=== PATIENT | female | born 1995 | race African-American/Black ===

== ENCOUNTER 2017-08-25 15:39 | Inpatient (IN) ==
[2017-08-25] MEDS ORDERED: ONDANSETRON 4 MG/2 ML VIAL IV PRN (15:59)
[2017-08-25] MEDS ORDERED: LACTATED RINGERS 1,000 ML IV ONE (15:59)
[2017-08-25] MEDS ORDERED: BUTORPHANOL 2 MG/ML VIAL IV PRN (15:59)
[2017-08-25] MEDS ORDERED: LACTATED RINGERS 1,000 ML IV SCH (16:00)
[2017-08-25] MEDS ORDERED: FAMOTIDINE 20 MG/2 ML VIAL IV ONE (16:23)
[2017-08-25] MEDS ORDERED: CITRIC ACID/SODIUM CITRATE 30 ML UDCUP PO ONE (16:23)
[2017-08-25] MEDS ORDERED: ePHEDrine 50 MG/ML AMP IV PRN (16:23)
[2017-08-25 16:27] LABS: Basophils # 0.1 10*3/uL (0.0-0.2); Basophils % 0.3 % (0.0-0.8); Eosinophils # 0.1 10*3/uL (0.0-0.87); Eosinophils % 0.3 % (0.00-10.9); Hematocrit 30.8 VOL% (35.7-47.0); Hemoglobin 9.4 GM/DL (12.0-16.0); Immature Granulocytes % 0.9 %; Immature Granulocytes Absolute 0.13 #; Lymphocytes # 1.8 10*3/uL (1.4-4.0); Lymphocytes % 11.8 % (21.3-54.2); Mean Corpuscular HGB Conc 30.5 GM/DL (32-36); Mean Corpuscular Hemoglobin 21 PG (27-34); Mean Corpuscular Volume 69.1 FL (87-102); Monocytes # 1.2 10*3/uL (0.11-0.8); Monocytes % 8.1 % (1.7-12.7); Neutrophils # 11.9 10*3/uL (1.4-7.4); Neutrophils % 78.6 % (38.7-73.9); Platelet Count 164 T/CUMM (130-400); Red Blood Count 4.46 MC/CUMM (3.8-5.5); Red Cell Distribution Width 25.1 % (9.3-17.3); White Blood Count 15.2 T/CUMM (4-12)
[2017-08-25] MEDS ORDERED: fentaNYL 2 MCG/ROPIV 0.2% EPID 150 ML EPIDURAL SCH (16:30)
[2017-08-25 17:02] LABS: Albumin 2.8 G/DL (3.4-5.0); Bilirubin,Total 0.8 MG/DL (0.2-1.0); Calcium 8.8 MG/DL (8.5-10.1); Potassium 3.6 MMOL/L (3.5-5.1); Total Protein 6.9 G/DL (6.4-8.3); Uric Acid 2.7 MG/DL (2.6-6.0)
[2017-08-25 17:04] LABS: INR 0.9; PT Patient Result 9.9 SECS; Partial Thromboplastin Time 26.4 SECS (0-40)
[2017-08-25 18:11] LABS: Barbiturates Screen,Urine Negative (Negative); Benzodiazepines Screen,Urine Negative (Negative); Cannabinoid Screen,Urine Positive (Negative); Opiate Screen,Urine Negative (Negative); Phencyclidine Screen,Urine Negative (Negative)
[2017-08-25] MEDS ORDERED: OXYTOCIN/LR 20 UNIT/1,000 ML BAG IV ONE (18:18)
[2017-08-25] MEDS ORDERED: ACETAMINOPHEN/CODEINE 300-30 MG TABLET PO PRN (19:17)
[2017-08-25] MEDS ORDERED: OXYTOCIN/LR 30 UNIT/1,000 ML BAG IV ONE (20:30)
[2017-08-25 21:27] LABS: Hypochromasia 1+; Microcytosis 2+; Ovalocytes Few; Platelet Estimate Normal; Poikilocytosis 1+; Tear Drop Cells Few
[2017-08-25] MEDS ORDERED: WITCH HAZEL PADS 100/JAR TOP PRN (22:59)
[2017-08-25] MEDS ORDERED: BENZOCAINE 20%/MENTHOL 0.5% SPRAY 56 GM CAN TOP PRN (22:59)
[2017-08-25] MEDS ORDERED: MEASLES/MUMPS/RUBELLA VACCINE 0.5 ML VIAL SUBCUT ONE (22:59)
[2017-08-25] MEDS ORDERED: oxyCODONE/ACETAMINOPHEN 5-325 MG TABLET PO PRN ×2 (22:59)
[2017-08-25] MEDS ORDERED: ACETAMINOPHEN 325 MG TABLET PO PRN (22:59)
[2017-08-25] MEDS ORDERED: LANOLIN 50% CREAM 0.3 OZ TUBE TOP PRN (22:59)
[2017-08-25] MEDS ORDERED: DIPH/TET/ACEL PERT BOOSTER VACCINE 0.5 ML VIAL IM ONE (22:59)
[2017-08-25] MEDS ORDERED: HYDROCORTISONE 2.5% RECTAL CREAM 30 GM TUBE TOP PRN (22:59)
[2017-08-25] MEDS ORDERED: IBUPROFEN 800 MG TABLET PO PRN (22:59)
[2017-08-25] MEDS ORDERED: RHO(D) IMMUNE GLOBULIN 300 MCG SYRINGE IM ONE (22:59)
[2017-08-25] MEDS ORDERED: BISACODYL 10 MG SUPP RECTAL PRN (22:59)
[2017-08-26] MEDS: DOCUSATE SODIUM 100 MG CAPSULE PO SCH ×3 (00:45→20:45)
[2017-08-26 07:31] LABS: Basophils % 0.3 % (0.0-0.8); Eosinophils % 0.2 % (0.00-10.9); Hematocrit 25.7 VOL% (35.7-47.0); Immature Granulocytes % 0.5 %; Immature Granulocytes Absolute 0.08 #; Lymphocytes # 1.9 10*3/uL (1.4-4.0); Lymphocytes % 11.9 % (21.3-54.2); Mean Corpuscular HGB Conc 31.1 GM/DL (32-36); Mean Corpuscular Hemoglobin 21 PG (27-34); Mean Corpuscular Volume 67.6 FL (87-102); Monocytes # 1.2 10*3/uL (0.11-0.8); Monocytes % 7.9 % (1.7-12.7); Neutrophils # 12.4 10*3/uL (1.4-7.4); Neutrophils % 79.2 % (38.7-73.9); Platelet Count 165 T/CUMM (130-400); Red Cell Distribution Width 24.8 % (9.3-17.3); White Blood Count 15.7 T/CUMM (4-12)
[2017-08-26 07:38] LABS: Hypochromasia 1+
[2017-08-26 07:39] LABS: Microcytosis 2+; Ovalocytes Few; Polychromasia Slight
[2017-08-26 07:40] LABS: Platelet Estimate Adequate; Tear Drop Cells Few
[2017-08-26] MEDS: FERROUS SULFATE 325 MG TABLET PO SCH ×2 (08:46→20:45)
[2017-08-26] MEDS ORDERED: SODIUM CHLORIDE 0.9% 1,000 ML IV PRN ×2 (09:34→09:51)
[2017-08-26 22:08] LABS: Hematocrit 29.8 VOL% (35.7-47.0); Hemoglobin 9.4 GM/DL (12.0-16.0)
[2017-08-27] MEDS: DOCUSATE SODIUM 100 MG CAPSULE PO SCH (08:50)
[2017-08-27] MEDS: FERROUS SULFATE 325 MG TABLET PO SCH (08:50)
[2017-08-27 11:11] VITALS: BP 139/73
== END 2017-08-27 13:35 | disposition home or self-care (01) | DRG 560 ==
LOC: N.LDOUT 15:39 → N.LD 15:40 → N.OB 22:34
PROVIDERS: ADMIT Obstetrics & Gynecology; ATTEND Obstetrics & Gynecology